=== PATIENT | male | born 1985 | race Caucasian/White ===

== ENCOUNTER 2021-06-25 12:00 | Emergency (ER) | payer BC, OTHER ==
[2021-06-25 12:06] VITALS: BP 137/98; PULSE 70; TEMP 98.3; BMI 27.1
[2021-06-25] MEDS ORDERED: DIPHTH,PERTUSS(ACELL),TET 0.5 ML DISP.SYRIN IM ONE ×2 (12:22→12:25)
== END 2021-06-25 13:50 | disposition home or self-care (01) ==
LOC: FER 12:00
PROC: 3E0234Z Introduction of Serum, Toxoid and Vaccine into Muscle, Percutaneous Approach (ICD-10-PCS; principal; 2021-06-25)
DX: S69.91XA Unspecified injury of right wrist, hand and finger(s), initial encounter (principal); S80.211A Abrasion, right knee, initial encounter; V00.841A Fall from standing electric scooter, initial encounter
CPT/HCPCS: 73070-TC-RT-FY; 73110-TC-RT-FY; 73130-TC-RT-FY; 73560-TC-RT-FY; 90715; 99285-25